=== PATIENT | female | born 1960 | race Caucasian/White ===

== ENCOUNTER 2024-05-10 10:27 | Emergency (ER) | payer BC ==
[~2024-05-10] VITALS: Ht 157.5 cm; Wt 63.5 kg
[2024-05-10 10:39] VITALS: BP_SYST 150; PULSE 78; RESP 18; TEMP 97.6; O2SAT 95
[2024-05-10] MEDS ORDERED: IBUP-1969 PO (12:48)
[2024-05-10] MEDS ORDERED: ACET-2634 PO (12:48)
[2024-05-10] MEDS: ACETAMINOPHEN 500 MG TABLET PO ONE (14:13)
[2024-05-10 15:20] VITALS: BP_SYST 145; PULSE 80; RESP 18; TEMP 97.6; O2SAT 95
== END 2024-05-10 14:39 | disposition home or self-care (01) ==
LOC: SED 10:27
DX: S09.8XXA Other specified injuries of head, initial encounter (principal); I10 Essential (primary) hypertension; Z79.899 Other long term (current) drug therapy; Z98.890 Other specified postprocedural states; W22.8XXA Striking against or struck by other objects, initial encounter; Y93.89 Activity, other specified; Y92.89 Other specified places as the place of occurrence of the external cause; Y99.8 Other external cause status
CPT/HCPCS: 70450-TC; 99284